=== PATIENT | male | born 1995 | race Caucasian/White ===

== ENCOUNTER 2018-03-12 06:51 | Day surgery (SDC) | payer OTHER ==
[~2018-03-12] VITALS: Ht 180.3 cm; Wt 117.9 kg
--- NOTE | ~2018-03-12 | HP ---
PATIENT: BETTY CAIN MEDICAL RECORD: [id number] ACCOUNT: [id number] LOCATION:[facility] : 95 ADMISSION DATE: 03/12/18 PCP: HISTORY AND PHYSICAL EXAMINATION HISTORY OF PRESENT ILLNESS: Betty is 22 years old. He has had problems with nasal obstruction. He has been admitted for septoplasty and bilateral inferior turbinate reduction. PAST MEDICAL HISTORY: Includes reflux. CURRENT MEDICATIONS: Zoloft and allergy shots. ALLERGIES: No known drug allergies. PHYSICAL EXAMINATION: GENERAL: He is a healthy appearing and developmentally normal. FACE: Normal, symmetric, no lesions. EYES: Sclerae and conjunctivae are normal. EARS: Canals and TMs are normal. NOSE: Severe right septal deviation, large inferior turbinates. ORAL CAVITY AND OROPHARYNX: Tongue protrudes in midline. Palate is normal. NECK: No masses, no adenopathy. CHEST: Clear. CARDIOVASCULAR: Regular rate and rhythm, no murmur. EXTREMITIES: Normal. IMPRESSION: Nasal obstruction, septal deviation, and turbinate hypertrophy. PLAN: Septoplasty and bilateral inferior turbinate reduction. TRANSINT:[id number] Voice Confirmation ID: [id number] DOCUMENT ID: [id number] ABDIAS GILMAN MD CC: [id number] DICTATION DATE: 03/11/18 1051 [employer] SALES ASSOCIATE: 03/11/18 1219 [facility] [address] [place] [address]
--- NOTE | ~2018-03-12 | OP ---
PATIENT NAME: BETTY CAIN MEDICAL RECORD: [id number] :89 LOCATION:[facility] ADMISSION DATE: SURGEON: ABDIAS TRUJILLO MD DATE OF OPERATION: 03/12/2018 PREOPERATIVE DIAGNOSES: Nasal obstruction, septal deviation, and turbinate hypertrophy. POSTOPERATIVE DIAGNOSES: Nasal obstruction, septal deviation, and turbinate hypertrophy. PROCEDURES: Septoplasty and bilateral inferior turbinate reduction. SURGEON: Abdias Trujillo MD ANESTHESIA: General orotracheal. BLOOD LOSS: 2 cc. SPECIMENS: None. PACKING: Pham splints bilaterally. COMPLICATIONS: None. DISPOSITION: Recovery stable. PROCEDURE NOTE: He was brought to the operating room and placed in supine position, sedated and intubated by anesthesia. A head drape was applied. He was positioned, prepped and draped in usual sterile fashion for nasal surgery. Using nasal speculum and headlight, the nose was examined. The septum, floor of the nose and inferior turbinates were injected with a total of 2 cc of 1% lidocaine with 1:100,000 epinephrine. A right-sided [place] incision was made and ipsilateral mucoperichondrial flap was elevated. Excess cartilage that was rolled into the floor of the nose was removed using a caudal. Bony cartilaginous junction was disarticulated and a posterior contralateral mucoperichondrial flap was elevated. Scissors were used to make a cut above and below the bony spur that was removed and then bony spur on the right side anteriorly was removed with a chisel. Some relaxing incisions were made in the cartilage. The length of the septum had to be shortened slightly so it fit up on top of the maxillary spine and go back into the midline. Both inferior turbinates were medialized with a freer. A [place] was used to take down the inferior redundant portion of the turbinates and suction cautery on a setting of 25 was used to stop any bleeding and both inferior turbinates were outfractured with a Boies elevator. Nasal speculum was examined. It was straight midline and intact. The [place] incision was closed with interrupted 4-0 chromic. Nose was packed with Pham splints bilaterally with some mupirocin ointment and sutured to the anterior membranous septum with a 2-0 Prolene on a Raúl needle. He was awakened, extubated, and transported to recovery in good condition. No complications. TRANSINT:[id number] Voice Confirmation ID: [id number] DOCUMENT ID: [id number] OPERATIVE REPORT [id number] BETTY CAIN ERIC MD CC: [id number] DICTATION DATE: 03/12/18 1137 FINANCIAL PROFESSIONAL: 03/12/18 1218 [facility] [address] [place] [address]
[~2018-03-12 06:51] MED LIST: CELEXA20 MG PO; LISINOPRIL HCTZ
[2018-03-12 08:00] VITALS: BP 124/78; Ht 180.3 cm; Wt 117.9 kg
[2018-03-12 08:07] LABS: HEMATOCRIT 45.6 % (42.0-54.0); HEMOGLOBIN 16.5 g/dL (13.5-17.5); MCH 29.6 pg (26.0-34.0); MCHC 36.2 g/dL (31.0-37.0); MCV 81.7 fL (80.0-100.0); RBC 5.58 10x6/uL (4.20-6.10); RDW 13.8 % (11.5-14.5); WBC 8.9 10x3/uL (4.8-10.8)
== END 2018-03-12 13:45 | disposition home or self-care (01) ==
LOC: D.OPS 06:51 → D.PAN 07:40 → D.OPS 07:45 → D.PAN 08:25 → D.OPS 09:00 → D.PAN 09:05 → D.OPS 09:45 → D.PAN 09:45 → D.OPS 13:45
PROVIDERS: Anesthesiology
DX: J34.2 Deviated nasal septum (principal); J34.3 Hypertrophy of nasal turbinates; K21.9 Gastro-esophageal reflux disease without esophagitis; Z79.899 Other long term (current) drug therapy

== ENCOUNTER 2018-10-22 08:00 | Outpatient (CLI) | payer OTHER ==
[2018-03-12 08:00] VITALS: BMI 36.3
== END 2018-10-22 23:59 | disposition home or self-care (01) ==
LOC: D.MAMMO 08:00
PROVIDERS: ATTEND Family Medicine
DX: N63.42 Unspecified lump in left breast, subareolar (principal)

== ENCOUNTER → 2018-11-16 14:27 | Outpatient (CLI) | payer OTHER ==
[2018-03-12 08:00] VITALS: BMI 36.3
== END | disposition home or self-care (01) ==
LOC: D.HCCARDIO 14:27
PROVIDERS: ATTEND Internal Medicine Cardiovascular Disease
DX: I47.1 Supraventricular tachycardia (principal)